=== PATIENT | female | born 1980 | race African-American/Black ===

== ENCOUNTER 2017-01-12 06:22 | Emergency (ER) | payer OTHER ==
--- NOTE | ~2017-01-12 | CT4 ---
[facility] A Service of [facility] RADIOLOGY TEXT RESULTS PATIENT: DARLYN MORALES LOCATION: SED : 78 UNIT #: [id number] AGE: [address]: Manan Henry DO SEX: F ORDER DR: [id number] [address] [address] [id number] E MR#: [id number] Acc #: [id number] NAME: DARLYN MORALES : 1980 SEX: F STUDY DATE/TIME: 01/12/2017 7:34 UNIT: SED ROOM: STUDY DESCRIPTION: CT Abd and Pelv Wo Cont Attending Physician: Manan Henry Ordering Physician: Manan Henry Primary Care Physician: [facility], MEDICAL IMAGING REPORT This report is preliminary unless electronic signature is present. EXAM Abdomen and pelvis CT without contrast HISTORY Right-sided abdominal pain beginning early this morning. TECHNIQUE Axial images were obtained without contrast and compared to previous examination from 12/18/2014. This CT exam was performed with one or more of the following radiation dose reduction techniques: automatic exposure control, adjustment of mA and/or kV according to patient size, and iterative reconstruction. FINDINGS The liver, spleen and pancreas are normal in size. There is a nonobstructing 2 mm stone in the left kidney. No hydronephrosis is seen on either side. No adrenal masses are noted. There is no evidence of retroperitoneal adenopathy or ascites. Postoperative changes are seen at the right groin. The appendix is not seen discretely but no inflammatory changes are noted in the right lower quadrant. In the pelvis there is no evidence of adenopathy, mass, or fluid collection. IMPRESSION Postoperative changes at the right groin. Appendix not visualized but no inflammatory changes are seen in the right lower quadrant. There is a nonobstructing 2 mm left kidney stone. Otherwise, negative examination. Dictated by... Ambrocio Xie M.D. THIS IS AN ELECTRONICALLY VERIFIED REPORT [facility] A Service of [facility] RADIOLOGY TEXT RESULTS PATIENT: DARLYN MORALES LOCATION: SED : 78 UNIT #: [id number] AGE: [address]: Manan Henry DO SEX: F ORDER DR: Ambrocio Xie M.D. at 01/12/2017 4:28 PM FREEDOM/kelley TD: 01/12/2017 09:41 JOB #: [id number] MEDICAL IMAGING REPORT Page 1 of 1
[~2017-01-12 06:22] MED LIST: ALLERGY MED PO; ALLERGY PILL; AMOXICILLIN875 MG PO; ANTIVERT PO; BACTRIM DS TABL1 TA1 PO; BROMFED DM COU118 ML PO; CIPRO PO; DEXAMETHASONE4 MG PO; DICLOFENAC PO; FLEXERIL10 M1 PO; MACROBID 100 M100 MG PO; METRONIDAZOLE PO; NO MEDICATIONS; NORCO 5/325 TAB1 TAB PO; PRILOSEC20 M1 PO; TAMIFLU75 M1 PO; VISTARIL PO; VOLTAREN75 MG PO; [UNRECOGNIZED DRUG - REMARK]; [UNRECOGNIZED DRUG - REMARK]
[2017-01-12] MEDS ORDERED: OXYCODONE HCL5 M1 PO (06:30)
[2017-01-12 07:04] LABS: URINE SOURCE CLEAN CATCH
[2017-01-12 07:07] LABS: BASOPHIL% 0.7 % (0-2.5); EOSINOPHIL# 0.2 X10e3 (0-0.7); EOSINOPHIL% 2.8 % (0.0-7.0); HEMATOCRIT 38.2 % (35.0-45.0); HEMOGLOBIN 12.4 gm/dL (12.0-16.0); LYMPHOCYTE# 1.6 X10e3 (1.0-3.5); LYMPHOCYTE% 28.7 % (17.0-45.0); MEAN CELL VOLUME 82.2 FL (83-96); MEAN CORPUSCULAR HEMOGLOBIN 26.6 PG (28-34); MEAN CORPUSCULAR HGB CONC 32.3 g/dL (30-36); MEAN PLATELET VOLUME 7.2 FL (6.5-11.5); MONOCYTE# 0.2 X10e3 (0-1.0); MONOCYTE% 4.6 % (3.0-12.0); NEUTROPHIL# 3.4 X10e3 (1.5-7.1); NEUTROPHIL% 63.2 % (40-75); PLATELET COUNT 301 X10e3 (140-420); RED BLOOD COUNT 4.64 X10e (3.90-5.30); RED CELL DISTRIBUTION WIDTH 17.1 % (11.0-15.5); WHITE BLOOD COUNT 5.4 X10e3 (4.0-10.5)
[2017-01-12 07:08] LABS: DIFF IND NO
[2017-01-12 07:11] LABS: URINE APPEARANCE CLEAR; URINE BILIRUBIN NEG (NEG); URINE BLOOD 1+ (NEG); URINE COLOR YELLOW; URINE GLUCOSE NEG (NORM); URINE KETONE NEG (NEG); URINE LEUKOCYTE ESTERASE NEG (NEG); URINE NITRATE NEG (NEG); URINE PH 5.5 (5-8); URINE PROTEIN NEG (NEG); URINE SPECIFIC GRAVITY <=1.005 (1.003-1.035); URINE UROBILINOGEN 0.2 MG/DL (NORM)
[2017-01-12 07:19] LABS: MICRO INDICATED? YES
[2017-01-12 07:21] LABS: CULTURE INDICATED? YES; URINE BACTERIA 1+ (NEG); URINE SQUAMOUS EPITHELIAL CELL FEW /[HPF]; URINE WBC 0-2 /[HPF] (0-5)
[2017-01-12 07:27] LABS: ALBUMIN SERUM 4.1 g/dL (3.5-5.0); ALKALINE PHOSPHATASE 52 U/L (32-92); ALT (SGPT) 22 U/L (10-40); AMYLASE 44 U/L (0-46); AST (SGOT) 41 U/L (10-42); BILIRUBIN,TOTAL 0.3 mg/dL (0.2-2.0); BLOOD UREA NITROGEN 13 mg/dL (9-23); BUN/CREATININE RATIO 16.25; CALCIUM SERUM 9.1 mg/dL (8.4-10.2); CARBON DIOXIDE 25 mmol/L (22-31); CHLORIDE 104 mmol/L (100-111); CREATININE SERUM 0.8 mg/dL (0.6-1.4); GLOM FILT RATE Estimated 109.3 mL/min (>60); GLUCOSE FASTING 93 mg/dL (70-110); LIPASE 43 U/L (22-51); POTASSIUM 3.4 mmol/L (3.5-5.1); SODIUM 139 mmol/L (135-145)
[2017-01-12 07:31] LABS: BILIRUBIN, DIRECT <0.1 mg/dL (0.0-0.2); BILIRUBIN,INDIRECT 0.2 mg/dL (0.0-0.9)
== END 2017-01-12 09:10 | disposition home or self-care (01) ==
LOC: SED 06:22
PROVIDERS: Emergency Medicine
DX: R10.11 Right upper quadrant pain (principal); R10.31 Right lower quadrant pain; R10.9 Unspecified abdominal pain; R11.2 Nausea with vomiting, unspecified
CPT/HCPCS: 36415; 74176; 80048; 80076; 81003; 82150; 83690; 84703; 85025; 87086; 96374; 96375; 99283; J1170; J2270; J2405